=== PATIENT | male | born 1960 | race Caucasian/White ===

== ENCOUNTER 2025-04-12 14:45 | Emergency (ER) | payer MEDICARE, SELFPAY ==
[2025-04-12 14:54] VITALS: BP 127/80
[2025-04-12 15:23] LABS: Hematocrit 43.7 % (39.0-52.0); Hemoglobin 15.0 g/dL (13.0-18.0); Mean Corp Hgb Conc. 34.3 g/dL (33.0-37.0); Mean Corpuscular Volume 89.4 fL (80.0-94.0); Nucleated Red Blood Cells % 0 % (-); Platelet Count 233 10^3/uL (130-400); Red Cell Dist. Width 13.4 % (11.5-14.5)
[2025-04-12 15:32] LABS: INR 1.03; PT 13.8 Sec (11.4-14.6)
[2025-04-12 15:38] LABS: ALT (SGPT) 30 U/L (0-50); AST (SGOT) 24 U/L (17-59); Albumin 4.5 g/dl (3.5-5.0); Alkaline Phosphatase 125 U/L (38-126); Blood Urea Nitrogen 14 mg/dl (9-20); Calcium 9.4 mg/dl (8.4-10.2); Carbon Dioxide 28 mmol/L (22-30); Chloride 106 mmol/L (98-107); Glucose 100 mg/dl (70-99); Potassium 4.5 mmol/L (3.5-5.1); Sodium 141 mmol/L (135-145); Total Protein 7.2 g/dl (6.3-8.2); eGFR > 60.00
[2025-04-12 15:49] LABS: Troponin I < 0.012 ng/ml
--- NOTE | 2025-04-12 19:38 | ED.GENMED ---
History of Present Illness
General
Chief Complaint: Chest Pain
Source: patient and spouse
Exam Limitations: none
Time Seen by Provider: 04/12/25 19:22
Nursing documentation reviewed up to this point in time: agreed with
History of Present Illness
History of Present Illness:
Note:
CHIEF COMPLAINT(S)
Chest pain and muscular pain following a fall from a wheelchair.
HISTORY OF PRESENT ILLNESS
The patient is a 64-year-old male who presents with chest discomfort following a recent fall from his wheelchair. He explains that while on a trip, his wheelchair flipped backward while attempting to maneuver over a curb, which resulted in him
falling with his chest from approximately two feet above ground level. According to the patient, he typically uses canes for ambulation and needed assistance to get back up after the fall.
Since the incident, the patient has experienced soreness on the right side of his chest, which he attributes to a potential muscle strain. He specifically notes that the pain is localized to the outside of the chest, rather than internal, and does
not experience discomfort when breathing. He mentions that the pain emerged after using his muscles more intensively when trying to rise. Chest pain was also noted during a recent routine wellness check, prompting his physician to perform an
electrocardiogram (EKG), which indicated changes from a prior EKG conducted in October. As a result, his doctor recommended further evaluation at the emergency department.
The fall occurred on March 27. The patient describes the pain as consistent with a typical muscle pull, and he has been 'babying' the area since then. He denies concerns for broken ribs, as there is no pain associated with breathing or movement that
would suggest rib injury. He has a history of regular muscle pulls.
PAST MEDICAL AND SURIGICAL HISTORY
- Spinal fracture history with L1, L2 vertebral fracture due to a fall from a roof in 1986, requiring use of wheelchair and support with canes and braces.
- Myocardial infarction in 2017, leading to stent placement, described as a 'widowmaker' blockage that was 90% obstructed.
- pacemaker insertion approximately two to three years post-heart attack.
CHRONIC MEDICAL CONDITIONS SIGNIFICANTLY AFFECTING CARE
1. Coronary artery disease with past myocardial infarction and stent placement.
2. Pacemaker for cardiac support post-heart attack.
MEDICATIONS
- Atorvastatin
- Carvedilol
- Sacubitril/Valsartan (Entresto)
PHYSICAL EXAM
General: Alert, no acute distress.
Skin: Warm, dry.
Head: Normocephalic, atraumatic.
Neck: Supple, trachea midline.
Eyes, ears, nose, mouth and throat: Oral mucosa moist.
Cardiovascular: Normal peripheral perfusion, no edema, pacemaker noted in the left upper chest.
Respiratory: Respirations are non-labored.
Gastrointestinal: Abdomen nondistended.
Back: Midline surgical scar over upper lumbar region.
Musculoskeletal: Pain on palpation of the chest wall, no pain with movement or breathing.
Neurological: Alert and oriented to person, place, time, and situation, no focal neurological deficit observed.
Psychiatric: Cooperative, appropriate mood & affect.
PROBLEM LIST
Acute Problems:
- Chest pain following fall with suspected muscle pull.
Chronic Problems:
- Coronary artery disease with past stent placement.
- Pacemaker for cardiac regulation post-myocardial infarction.
PLAN
- Monitoring of the chest pain and potential muscle strain due to the fall.
- Further cardiac evaluation due to changes in EKG compared to EKG, as advised by the primary physician.
- Continue current medications for coronary artery disease management.
DIFFERENTIAL DIAGNOSIS
The Differential Diagnosis includes, in no particular order and is not limited to:
1. Musculoskeletal chest pain due to muscle strain or contusion.
2. Rib fracture (less likely due to lack of pain with breathing).
3. Cardiac ischemia or angina given patients cardiac history.
4. Costochondritis.
5. Pneumothorax (less likely given the absence of respiratory distress).
6. Cardiac arrhythmia.
7. Anxiety-related chest pain.
8. Pulmonary embolism (requires ruling out due to immobility).
9. Myocardial infarction (less likely given current findings but concerned due to history).
10. Pacemaker malfunction.
CARE-UPDATE
04/12/25 - 19:44
Patient likely experiencing a muscle wall or chest wall strain with ongoing symptoms for three weeks. Significant EKG changes noted, but there is no suspicion of ACS or PE. The patient is stable for discharge. Continue monitoring symptoms and
consider physical therapy if pain persists. Reassess if symptoms worsen.
EKG
My independent EKG interpretation is:
- Time of EKG: Not specified
- Rhythm: Normal sinus rhythm
- Heart Rate: 81 bpm
- WI Interval: Normal
- QRS Duration: Right bundle branch block
- QT Interval: Normal
- Cabot: Left
- Abnormalities: Right bundle branch block, left anterior fascicular block, no ischemia
- Comparison: No changes from prior EKG
Disposition:
SUMMARY OF ENCOUNTER
The patient, a 64-year-old male with a history of coronary artery disease and post-myocardial infarction care, presented to the emergency department with chest pain following a fall from his wheelchair. The pain was localized to the right side of
the chest and consistent with a muscle pull. Given the patients cardiac history, and changes noted in a recent EKG, further evaluation was warranted. Physical examination revealed pain on palpation of the chest wall without respiratory distress,
movement pain, or suspicion of rib injury. There was no immediate concern for acute coronary syndrome or pulmonary embolism based on the clinical presentation and the patients account.
DISPOSITION
Discharge
ASSESSMENT
Muscular chest wall pain consistent with muscle strain due to the fall, stable coronary artery disease with past myocardial infarction, pacemaker support post-heart attack, and right bundle branch block as noted in the EKG.
PLAN
Monitoring of chest pain and potential muscle strain. Patients are advised to continue medications for coronary artery disease and to seek cardiac evaluation if symptoms worsen or new symptoms develop. Discharge with instructions on return
precautions and follow-up with the primary care physician or juvenile detention officer as needed.
INDEPENDENT REVIEW OF LABS AND INTERPRETATION OF TESTS
My independent EKG interpretation is: - Rhythm: Normal sinus rhythm - Heart Rate: 81 bpm - WI Interval: Normal - QRS Duration: Right bundle branch block - QT Interval: Normal - Cabot: Left - Abnormalities: Right bundle branch block, left anterior
fascicular block, no ischemia. No changes from prior EKG.
PATIENT EDUCATION AND COUNSELING
The patient was advised on monitoring symptoms and given return precautions. Education regarding the nature of muscular pain following a fall and reassurance provided given the current EKG and stable symptoms.
FOLLOW-UP INSTRUCTIONS
The patient is advised to follow up with their primary care physician as needed and seek further cardiac evaluation as recommended. Return to the emergency department if symptoms worsen or new symptoms develop.
MEDICAL DECISION MAKING
-Number and Complexity of Problems Addressed: Chronic conditions affecting care include coronary artery disease, post-myocardial infarction with pacemaker support, recent chest pain following a fall.
-Data:
Category 1: My independent interpretation of the EKG, noting right bundle branch block and no ischemia.
-Risk: Prescription medication was continued; patient discharged with instructions for outpatient follow-up given stable presentation, reassuring examination, and reliable follow-up potential.
DIAGNOSIS
1. Muscular chest wall pain (ICD-10: M79.1)
2. Coronary artery disease, post-myocardial infarction (ICD-10: I25.10)
3. Right bundle branch block (ICD-10: I45.2)
Past History
Past History
ED Past Medical History: CAD and Other
ED Past Surgical History: Cholecystectomy
Social History
Tobacco: Non-smoker
Alcohol: Occasional
Family History
Family History: CAD
Phy Exam
Physical Exam
Physical Exam:
.
Scores
Heart Score for Chest Pain Patients
STEMI patient?: Not applicable
Course
Orders/Labs/Results
Orders:
Orders
04/12/25 14:46
Electrocardiogram (*1) Urgent
Reason for Study: Chest Pain
EKG- Treatment ONCE
04/12/25 15:10
Complete Blood Count/With Diff Urgent
Comprehensive Metabolic Panel Urgent
Prothrombin Time Urgent
Troponin I Urgent
Abnormal Lab Results
04/12/25
15:10
Creatinine 0.5 L mg/dL
(0.7-1.3)
Glucose 100 H mg/dl
(70-99)
04/12/25 15:10
04/12/25 15:10
Vital Signs
Initial and Last Documented VS:
Initial Vital Signs
Temp Pulse Resp BP Pulse Ox
98.0 F 83 18 127/80 96
04/12/25 14:54 04/12/25 14:54 04/12/25 14:54 04/12/25 14:54 04/12/25 14:54
Last Documented Vital Signs
Temp Pulse Resp BP Pulse Ox
98.0 F 89 18 120/79 99
04/12/25 14:54 04/12/25 19:30 04/12/25 19:30 04/12/25 19:39 04/12/25 19:41
*Pulse Oximetry
SaO2: 99
Oxygen Mode of Delivery: Room air
Patient hypoxic: no
*Critical Care Note
Total Time (30-74mins, 75-104mins- exclusive of procedures): Not Applicable
ED Attending Note
-
Portions of this chart may have been created with voice recognition software.� Occasional wrong word or��sound alike� substitutions may have occurred due to the inherent limitations of voice recognition software.
Discharge Plan
Departure
Patient Disposition: Home (Routine Discharge)
Date of Disposition: 04/12/25
Time of Disposition: 19:41
Patient with high blood pressure during this ER visit?: Yes
Condition: Good
Discharge Problem:
Acute chest wall pain
Instructions: Chest Pain That Is Not Caused by the Heart (DC), BLOOD PRESSURE
Prescriptions:
No Action
finasteride 5 MG tablet
5 mg PO DAILY Qty: 0
aspirin 81 MG tablet,chewable
81 mg PO DAILY 0RF
Entresto 1 EACH tablet
1 ea PO BID
carvedilol 3.125 MG tablet
6.25 mg PO BID
Jardiance 10 mg Tablet
10 mg PO DAILY
pantoprazole [Protonix] 40 mg tablet,delayed release (DR/EC)
40 mg PO DAILY Qty: 30 1RF
Activity Restrictions/Additional Instructions:
Follow up with primary care as needed. Return for any concerns.
Interventions
Interventions:
*Risk Screen - Suicide Last Done: 04/12/25 14:54
*General Assessment Last Done: 04/12/25 14:54
*Neglect/Abuse Screening Last Done: 04/12/25 14:54
*ED- Fall Risk Assessment Last Done: 04/12/25 19:32
*ED COVID-19 Vaccine History Last Done: 04/12/25 19:36
*Nursing Disposition Last Done: 04/12/25 19:50
ED- Cardiac Assessment Last Done: 04/12/25 19:32
Discharge Date and Time
Discharge Date/Time: 04/12/25 19:52
Print Language: INDONESIAN
[2025-04-12 19:39] VITALS: BP 120/79
== END 2025-04-12 19:52 | disposition home or self-care (01) ==
LOC: EMR 14:45
PROVIDERS: Emergency Medicine; EMERGENCY PHYSICIAN Emergency Medicine; FAMILY PHYSICIAN Family Medicine
DX: R07.89 Other chest pain (principal); I25.10 Atherosclerotic heart disease of native coronary artery without angina pectoris; I45.2 Bifascicular block; I25.2 Old myocardial infarction; Z79.82 Long term (current) use of aspirin; Z95.5 Presence of coronary angioplasty implant and graft; Z95.0 Presence of cardiac pacemaker; Z82.49 Family history of ischemic heart disease and other diseases of the circulatory system; W05.0XXA Fall from non-moving wheelchair, initial encounter; Y92.480 Sidewalk as the place of occurrence of the external cause
CPT/HCPCS: 99284; 80053; 84484; 85025; 85610; 93005

== ENCOUNTER → 2025-07-27 07:57 | Outpatient (REF) | payer MEDICARE, SELFPAY | LOC: RCS 07:57 | PROVIDERS: ATTENDING PHYSICIAN Internal Medicine Cardiovascular Disease; FAMILY PHYSICIAN Family Medicine | DX: I25.5 Ischemic cardiomyopathy (principal) | CPT/HCPCS: 93306 ==